=== PATIENT | female | born 1945 | race Caucasian/White ===

== ENCOUNTER 2018-03-18 08:41 | Emergency (ER) | payer OTHER ==
[2018-03-18 09:15] LABS: Urine Appearance TURBID; Urine Blood 3+ (NEG); Urine Color RED; Urine Glucose TRACE (NEG); Urine Protein 3+ (NEG)
[2018-03-18 09:20] LABS: Urine Microscopic Reflex ORDER UMIC
[2018-03-18 10:09] LABS: Potassium 3.8 mmol/L (3.5-5.1)
[2018-03-18 10:19] LABS: Urine RBC TNTC /HPF (NONE SEEN)
[2018-03-18 10:20] LABS: Urine Bacteria 20-50 /HPF (<20); Urine Culture Reflex Order REFLEXED
[2018-03-18 10:21] LABS: Urine Bilirubin NEGATIVE (NEG)
[2018-03-18 10:27] LABS: Absolute Monocytes 0.8 K/uL (0.1-1.3); Absolute Neutrophil 7.5 K/uL (1.8-8.0); Basophils % 0.3 % (0-1.3); Eosinophils % 0.9 % (0-4.4); Hematocrit 39.4 % (36.0-45.0); Lymphocytes % 10.2 % (15.3-44.8); MCH 29.6 pg (27.0-35.0); MCV 88.1 fL (80-100); MPV 9.6 fL (7.6-11.3); RBC Red Blood Cell Count 4.47 M/uL (3.86-4.86)
[2018-03-18 10:58] LABS: Urine Appearance TURBID; Urine Blood 3+ (NEG); Urine Color RED; Urine Glucose TRACE (NEG); Urine Protein 3+ (NEG); Urine Specific Gravity 1.015 (1.005-1.030)
--- NOTE | 2018-03-18 11:15 | RAD REPORT ---
EXAM DESCRIPTION: CT - Abdomen Pelvis W Contrast - 03/18/2018 10:39 am CLINICAL HISTORY: Abdominal pain/hematuria. COMPARISON: none. TECHNIQUE: Computed axial tomography of the abdomen pelvis was obtained. 100 cc Isovue-300 was admin istered intravenously. Oral contrast was not requested which limits evaluation of bowel. All CT scans are performed using dose optimization technique as appropriate and may include automated exposure control or mA/KV adjustment according to patient size. FINDINGS: The liver, pancreas, and right adrenal gland appear unremarkable. An 11 millimeter left ad renal lesion is seen. Splenic granulomata are seen. Tiny fatty lesion within each kidney likely are benign. There is no evidence of diverticulitis. The appendix is normal. A 1 centimeter calcification within the right adnexal likely is benign. Tiny umbilical hernia is seen A left lower lobe granuloma is seen. Spondylosis involves lumbar spine resulting in spinal stenosis IMPRESSION: 11 millimeter left adrenal lesion is nonspecific. Cyst statistically is most likely pablo gn. Follow-up ultrasound or MRI in 3 months would be helpful to assess stability. Tiny umbilical hernia Spondylosis involves lumbar spine resulting in spinal stenosis
[2018-03-18 11:31] LABS: Urine Bilirubin NEGATIVE (NEG); Urine Microscopic Reflex ORDER UMIC
[2018-03-18] MEDS ORDERED: CEFTRIAXONE/SWI 1gm 1 GM/10 ML SYR ONE (11:42)
--- NOTE | 2018-03-18 11:56 | ER ---
Nurse's Notes [facility] Name: Aby Morrison Age: 72 yrs Sex: Female : 1945 Arrival Date: 03/18/2018 Time: 08:48 Bed 20 Private MD: None, None Diagnosis: Urinary tract infection, site not specified;Cystitis, unspecified with hematuria Presentation: 03/18 08:54 Transition of care: patient was not received from another setting of care. Onset of aa5 symptoms was March 18, 2018. Risk Assessment: Do you want to hurt yourself or someone else? Patient reports no desire to harm self or others. Initial Sepsis Screen: Does the patient meet any 2 criteria? HR > 90 bpm. Does the patient have a suspected source of infection? No. Patient's initial sepsis screen is negative. Care prior to arrival: None. 08:54 Method Of Arrival: Ambulatory aa5 08:54 Acuity: DANNY 3 aa5 08:54 Presenting complaint: Patient states: burning with urination, urinary frequency, and aa5 urinary urgency that began today at 0000. Pt states "I also started having vaginal bleeding when all this started at midnight". Pt denies pain. Historical: - Allergies: 08:56 No Known Allergies; aa5 - PMHx: 08:56 Pneumonia; Hypertension; aa5 - PSHx: 08:56 Deric knees; aa5 - Immunization history:: Adult Immunizations up to date, Pneumococcal vaccine is up to date, Flu vaccine is up to date. - Social history:: Smoking status: Patient/guardian denies using tobacco. - Ebola Screening: : No symptoms or risks identified at this time. Screenin:06 Abuse screen: Denies threats or abuse. Nutritional screening: No deficits noted. aa5 Tuberculosis screening: No symptoms or risk factors identified. Fall Risk None identified. Assessment: 08:56 General: Appears comfortable, Behavior is calm, cooperative. Pain: Denies pain. Neuro: aa5 Level of Consciousness is awake, alert, obeys commands, Oriented to person, place, time, situation. 08:56 Cardiovascular: Heart tones S1 S2 present Rhythm is regular. Respiratory: Airway is aa5 patent Respiratory effort is even, unlabored, Respiratory pattern is regular, symmetrical, Breath sounds are clear bilaterally. GI: Abdomen is round non-distended, Bowel sounds present X 4 quads. Abd is soft and non tender X 4 quads. : Reports burning with urination, urgency, urinary frequency, vaginal bleeding that is bright red, moderate flow. EENT: No signs and/or symptoms were reported regarding the EENT system. Derm: Skin is pink, warm \\T\\ dry. Musculoskeletal: Range of motion: intact in all extremities. 09:50 Reassessment: Patient and/or family updated on plan of care and expected duration. Pain aa5 level reassessed. Patient is alert, oriented x 3, equal unlabored respirations, skin warm/dry/pink. Pt notified of wait time for lab results. . 10:15 General: Appears in no apparent distress. comfortable, Behavior is calm, cooperative, aj appropriate for age. Pain: Denies pain. Neuro: Level of Consciousness is awake, alert, obeys commands, Oriented to person, place, time, situation, Appropriate for age. Respiratory: Airway is patent Respiratory effort is even, unlabored, Respiratory pattern is regular, symmetrical. GI: Abdomen is non-distended, obese. : Reports burning with urination, urinary frequency, Blood in urine. Derm: Skin is intact, is healthy with good turgor, Skin is pink, warm \\T\\ dry. normal. 10:41 Reassessment: Inserted straight cath, ashlyn blood with clots returned. aj 12:19 Reassessment: Patient appears in no apparent distress at this time. No changes from aj previously documented assessment. Patient and/or family updated on plan of care and expected duration. Pain level reassessed. Patient is alert, oriented x 3, equal unlabored respirations, skin warm/dry/pink. Vital Signs: 08:56 BP 144 / 69; Pulse 105; Resp 16 S; Temp 99.1(TE); Pulse Ox 97% on R/A; Weight 108.86 kg aa5 (R); Height 5 ft. 2 in. (157.48 cm) (R); Pain 0/10; 10:15 BP 124 / 58; Pulse 91; Resp 18; Pulse Ox 100% on R/A; aj 11:49 BP 129 / 62; Pulse 92; Resp 19; Pulse Ox 100% on R/A; aj 08:56 Body Mass Index 43.90 (108.86 kg, 157.48 cm) aa5 ED Course: 08:48 Patient arrived in ED. mr 08:49 None, None is Private Physician. mr 08:54 Arm band placed on Patient placed in an exam room, on a stretcher. aa5 08:59 Black Wilde MD is Attending Physician. kdr 09:00 Shannen Martinez RN is Primary Nurse. aa5 09:03 Triage completed. aa5 09:04 Urinalysis Sent. 5 09:04 Urine collected: clean catch specimen, ashlyn blood. 5 09:05 Patient has correct armband on for positive identification. Placed in gown. Bed in low mh5 position. Call light in reach. Side rails up X 1. Adult w/ patient. Pillow given. Pulse ox on. NIBP on. 09:33 Missed attempt(s): 22 gauge in left antecubital area. Bleeding controlled, band aid aa5 applied, catheter tip intact. 09:35 Initial lab(s) drawn, by wi, sent to lab. Inserted saline lock: 22 gauge in right aa5 antecubital area, using aseptic technique. 09:44 Straight cath inserted, using sterile technique, 16 Fr. Unable to collect specimen. aa5 Only a very tiny amount of urine noted to be flank blood not enough to drain into a urine collection cup. MD was notified, instructed to attempt straight cath again later. 09:46 Assist provider with pelvic exam: Set up pelvic tray. Performed by Black Wilde MD aa5 Patient tolerated well. No vaginal bleeding noted by . 10:05 Report given to LUCERO Murrieta. aa5 10:21 CT completed. Patient tolerated procedure well. Patient moved to CT via stretcher. [email or web address] Patient moved back from CT. 10:40 CT Abd/Pelvis - W/Contrast In Process Unspecified. EDMS 10:40 Straight cath inserted, using sterile technique, 16 Fr. Specimen obtained. Returned aj bloody urine. Patient tolerated well. 11:49 Urine Microscopic Only Sent. 5 11:49 Urine Culture Sent. 5 11:49 Urinalysis Sent. 5 12:19 IV discontinued, intact, bleeding controlled, No redness/swelling at site. Pressure aj dressing applied. Administered Medications: 11:48 Drug: Rocephin - (cefTRIAXone) 1 grams Route: IVPB; Infused Over: 30 mins; Site: right aj antecubital; 12:21 Follow up: Response: No adverse reaction; IV Status: Completed infusion; IV Intake: 10mlaj Intake: 12:21 IV: 10ml; Total: 10ml. haven Outcome: 11:55 Discharge ordered by . kdr 12:19 Discharged to home ambulatory. aj 12:19 Condition: good 12:19 Discharge instructions given to patient, Instructed on discharge instructions, follow up and referral plans. medication usage, Demonstrated understanding of instructions, follow-up care, medications, Prescriptions given X 1. 12:21 Patient left the ED. aj Addendum: 03/21/2018 08:30 Addendum: Culture Results: Positive urine culture. No further action required. Bacteria i w sensitive to prescribed antibiotic. Signatures: Dispatcher [employer] EDMS Glenny Doll, RN Black Newell MD MD kdr Rivera, Denita Todd, RN Shannen Doe RN RN rebel Rico, Lori Boyd, Emily [email or web address] Corrections: (The following items were deleted from the chart) 03/18 09:48 09:44 Straight cath inserted, using sterile technique, 16 Fr. Unable to collect aa5 specimen. Only a very tiny amount of blood noted not enough to drain into a urine collection cup. was notified, instructed to attempt straight cath again later. aa5 10:18 10:15 BP 142 / 104; Pulse 88bpm; Resp 16bpm; Pulse Ox 99% RA; haven orourke
--- NOTE | 2018-03-18 11:56 | EDPHYS ---
Physician Documentation [facility] Name: Aby Morrison Age: 72 yrs Sex: Female : 1945 Arrival Date: 03/18/2018 Time: 08:48 Bed 20 Private MD: None, None ED Physician Black Wilde HPI: 03/18 11:24 This 72 yrs old Female presents to ER via Ambulatory with complaints of kdr Urinary Problem, Vaginal Bleeding. 11:24 The patient presents with urinary symptoms, dysuria, hematuria, vaginal bleeding that kdr is. Onset: The symptoms/episode began/occurred acutely, last night. Modifying factors: The symptoms are alleviated by nothing, the symptoms are aggravated by urinating. 15:53 Associated signs and symptoms: Pertinent positives: cramping, hematuria, vaginal kdr bleeding. Severity of symptoms: At their worst the symptoms were mild, moderate, just prior to arrival, in the emergency department the symptoms are unchanged. The patient has not experienced similar symptoms in the past. The patient has not recently seen a physician. Historical: - Allergies: 08:56 No Known Allergies; aa5 - PMHx: 08:56 Pneumonia; Hypertension; aa5 - PSHx: 08:56 Deric knees; aa5 - Immunization history:: Adult Immunizations up to date, Pneumococcal vaccine is up to date, Flu vaccine is up to date. - Social history:: Smoking status: Patient/guardian denies using tobacco. - Ebola Screening: : No symptoms or risks identified at this time. ROS: 15:53 Constitutional: Negative for fever, chills, and weight loss, Eyes: Negative for injury, kdr pain, redness, and discharge, ENT: Negative for injury, pain, and discharge, Neck: Negative for injury, pain, and swelling, Cardiovascular: Negative for chest pain, palpitations, and edema, Respiratory: Negative for shortness of breath, cough, wheezing, and pleuritic chest pain, Abdomen/GI: Negative for abdominal pain, nausea, vomiting, diarrhea, and constipation, Back: Negative for injury and pain, MS/Extremity: Negative for injury and deformity, Skin: Negative for injury, rash, and discoloration, Neuro: Negative for headache, weakness, numbness, tingling, and seizure activity. Psych: Negative for depression, anxiety, suicide ideation, homicidal ideation, and hallucinations, Allergy/Immunology: Negative for hives, rash, and allergies, Endocrine: Negative for neck swelling, polydipsia, polyuria, polyphagia, and marked weight changes, Hematologic/Lymphatic: Negative for swollen nodes, abnormal bleeding, and unusual bruising. 15:53 : Positive for urinary symptoms, small amounts, hematuria, burning with urination, difficulty urinating, bladder incontinence Exam: 15:53 Constitutional: This is a well developed, well nourished patient who is awake, alert, kdr and in no acute distress. Head/Face: Normocephalic, atraumatic. Eyes: Pupils equal round and reactive to light, extra-ocular motions intact. Lids and lashes normal. Conjunctiva and sclera are non-icteric and not injected. Cornea within normal limits. Periorbital areas with no swelling, redness, or edema. Neck: Trachea midline, no thyromegaly or masses palpated, and no cervical lymphadenopathy. Supple, full range of motion without nuchal rigidity, or vertebral point tenderness. No Meningismus. Chest/axilla: Normal chest wall appearance and motion. Nontender with no deformity. No lesions are appreciated. Cardiovascular: Regular rate and rhythm with a normal S1 and S2. No gallops, murmurs, or rubs. Normal PMI, no JVD. No pulse deficits. Respiratory: Lungs have equal breath sounds bilaterally, clear to auscultation and percussion. No rales, rhonchi or wheezes noted. No increased work of breathing, no retractions or nasal flaring. Abdomen/GI: Soft, non-tender, with normal bowel sounds. No distension or tympany. No guarding or rebound. No evidence of tenderness throughout. Back: No spinal tenderness. No costovertebral tenderness. Full range of motion. Skin: Warm, dry with normal turgor. Normal color with no rashes, no lesions, and no evidence of cellulitis. MS/ Extremity: Pulses equal, no cyanosis. Neurovascular intact. Full, normal range of motion. Neuro: Awake and alert, GCS 15, oriented to person, place, time, and situation. Cranial nerves II-XII grossly intact. Motor strength 5/5 in all extremities. Sensory grossly intact. Cerebellar exam normal. Normal gait. Psych: Awake, alert, with orientation to person, place and time. Behavior, mood, and affect are within normal limits. 15:53 : CVA tenderness, is absent, Pelvic Exam: Speculum exam: no bleeding is noted, no cervicitis, Bladder: Vital Signs: 08:56 BP 144 / 69; Pulse 105; Resp 16 S; Temp 99.1(TE); Pulse Ox 97% on R/A; Weight 108.86 kg aa5 (R); Height 5 ft. 2 in. (157.48 cm) (R); Pain 0/10; 10:15 BP 124 / 58; Pulse 91; Resp 18; Pulse Ox 100% on R/A; aj 11:49 BP 129 / 62; Pulse 92; Resp 19; Pulse Ox 100% on R/A; aj 08:56 Body Mass Index 43.90 (108.86 kg, 157.48 cm) aa5 MDM: 11:55 Patient medically screened. kdr 15:53 Data reviewed: vital signs, nurses notes, lab test result(s), radiologic studies. kdr Counseling: I had a detailed discussion with the patient and/or guardian regarding: the historical points, exam findings, and any diagnostic results supporting the discharge/admit diagnosis, lab results, radiology results, the need for outpatient follow up. 03/18 09:01 Order name: Urinalysis; Complete Time: 11:21 03/18 09:21 Order name: Urine Microscopic Only; Complete Time: 11:21 [facility] 03/18 09:30 Order name: CBC with Diff; Complete Time: 11:21 [facility] 03/18 09:30 Order name: Chem 7; Complete Time: 10:19 [facility] 03/18 10:26 Order name: Urine Culture [facility] 03/18 10:42 Order name: Urinalysis 03/18 09:44 Order name: Straight Cath - Urine; Complete Time: 10:46 [facility] 03/18 09:44 Order name: Pelvic Exam Setup; Complete Time: 09:44 [facility] 03/18 10:03 Order name: CT Abd/Pelvis - W/Contrast; Complete Time: 11:21 [facility] 03/18 11:32 Order name: Urine Microscopic Only [facility] Administered Medications: 11:48 Drug: Rocephin - (cefTRIAXone) 1 grams Route: IVPB; Infused Over: 30 mins; Site: right aj antecubital; 12:21 Follow up: Response: No adverse reaction; IV Status: Completed infusion; IV Intake: 10mlaj Disposition: 03/18/18 11:55 Discharged to Home. Impression: Urinary tract infection, site not specified, Cystitis, unspecified with hematuria. - Condition is Stable. - Discharge Instructions: Urinary Tract Infection, Adult, [id number]. - Prescriptions for Bactrim DS 800- 160 mg Oral Tablet - take 1 tablet by ORAL route every 12 hours for 10 days; 20 tablet. - Medication Reconciliation Form, Thank You Letter, Antibiotic Education form. - Follow up: Private Physician; When: 1 - 2 days; Reason: If symptoms return, Further diagnostic work-up, Recheck today's complaints, Continuance of care, Re-evaluation by your physician. - Problem is new. - Symptoms are unchanged. Signatures: Dispatcher [employer] Glenny Acuna RN RN Black Wall MD MD kdr Calderon, Audri, RN RN aa5 Corrections: (The following items were deleted from the chart) 12:21 11:55 03/18/2018 11:55 Discharged to Home. Impression: Urinary tract infection, site aj not specified; Cystitis, unspecified with hematuria. Condition is Stable. Forms are Medication Reconciliation Form, Thank You Letter, Antibiotic Education, Prescription Opioid Use. Follow up: Private Physician; When: 1 - 2 days; Reason: If symptoms return, Further diagnostic work-up, Recheck today's complaints, Continuance of care, Re-evaluation by your physician. Problem is new. Symptoms are unchanged. kdr
[2018-03-18 12:21] LABS: Urine Bacteria 20-50 /HPF (<20); Urine Culture Reflex Order NOT NEEDED; Urine RBC TNTC /HPF (NONE SEEN)
== END 2018-03-18 12:21 | disposition home or self-care (01) ==
LOC: ER 08:41
DX: N30.91 Cystitis, unspecified with hematuria (principal); I10 Essential (primary) hypertension
CPT/HCPCS: 36415; 51702; 74177; 80048; 85025; 87077; 87086; 87088; 87186; 96365; 99284; J0696; Q9967; 81003; 81015